=== PATIENT | female | born 1975 | race African-American/Black ===

== ENCOUNTER 2022-04-18 04:08 | Day surgery (SDC) | payer OTHER ==
[2022-04-17 13:31] VITALS: BMI 30.4
[2022-04-18] MEDS ORDERED: ONDANSETRON 4 MG/2 ML VIAL ONE ×2 (09:17→12:27)
[2022-04-18] MEDS ORDERED: DEXAMETHASONE SOD PHOSPHATE 4 MG/1 ML VIAL ONE (09:17)
[2022-04-18] MEDS ORDERED: MIDAZOLAM HCL 2 MG/2 ML SINGLE DOSE VIAL ONE (09:17)
[2022-04-18] MEDS ORDERED: LIDOCAINE HCL/PF 2% SDV 5ML VIAL ONE (09:17)
[2022-04-18] MEDS ORDERED: PROPOFOL 20 ML ONE (09:17)
[2022-04-18] MEDS ORDERED: DESFLURANE GAS 240 ML BOTTLE IH ONE (09:51)
[2022-04-18] MEDS ORDERED: ceFAZolin SODIUM 1 GM VIAL ONE (10:34)
[2022-04-18] MEDS ORDERED: ceFAZolin SODIUM 1 GM VIAL IVPB ONE (10:35)
[2022-04-18] MEDS ORDERED: KETOROLAC TROMETHAMINE 30 MG/1 ML VIAL ONE (10:47)
[2022-04-18] MEDS ORDERED: ACETAMINOPHEN 325 MG TABLET (FP) PO PRN (11:04)
[2022-04-18] MEDS ORDERED: IBUPROFEN 400 MG TABLET (FP) PO PRN (11:04)
[2022-04-18] MEDS ORDERED: ONDANSETRON 4 MG/2 ML VIAL IVPUSH PRN (11:25)
[2022-04-18] MEDS ORDERED: oxyCODONE HCL 5 MG TABLET PO PRN (11:25)
[2022-04-18] MEDS ORDERED: LACTATED RINGERS SOLUTION 1,000 ML IV SCH (11:30)
[2022-04-18 12:43] VITALS: PULSE 80; RESP 18
[2022-04-18 15:58] VITALS: BP 149/80; TEMP 98
== END 2022-04-18 15:00 | disposition home or self-care (01) ==
LOC: JASU-SURG 04:08
PROVIDERS: ATTEND Specialist
PROC: 0UB98ZX Excision of Uterus, Via Natural or Artificial Opening Endoscopic, Diagnostic (ICD-10-PCS; principal; 2022-04-18 10:00)
PROC: 0UDB7ZX Extraction of Endometrium, Via Natural or Artificial Opening, Diagnostic (ICD-10-PCS; 2022-04-18 10:00)
DX: N84.0 Polyp of corpus uteri (principal); D25.0 Submucous leiomyoma of uterus; E11.9 Type 2 diabetes mellitus without complications; I10 Essential (primary) hypertension
CPT/HCPCS: 81025; 82962; 88305-TC; 94760

== ENCOUNTER → 2023-10-03 | Day surgery (SDC) | payer OTHER | END | disposition home or self-care (01) | LOC: FMAMMOTONE 10:10 | PROVIDERS: ATTEND Family Medicine | PROC: 0HBU3ZX Excision of Left Breast, Percutaneous Approach, Diagnostic (ICD-10-PCS; principal; 2023-10-03) | DX: N60.31 Fibrosclerosis of right breast (principal); N64.89 Other specified disorders of breast; R92.0 Mammographic microcalcification found on diagnostic imaging of breast | CPT/HCPCS: 19081; 76098-TC-FY; 87899; 88305-TC; A4648 ==

== ENCOUNTER 2023-12-04 04:13 | Day surgery (SDC) | payer OTHER ==
[2023-11-28 10:44] VITALS: BMI 31.7
[2023-12-04] MEDS ORDERED: PROPOFOL 20 ML ONE ×2 (09:33→09:48)
[2023-12-04] MEDS ORDERED: MIDAZOLAM HCL 2 MG/2 ML SINGLE DOSE VIAL ONE (09:34)
[2023-12-04] MEDS ORDERED: PROMETHAZINE HCL 25 MG/1 ML VIAL IVPB PRN (10:18)
[2023-12-04] MEDS ORDERED: ONDANSETRON 4 MG/2 ML VIAL IVPUSH PRN (10:18)
[2023-12-04] MEDS ORDERED: oxyCODONE HCL 5 MG TABLET PO PRN (10:18)
[2023-12-04] MEDS ORDERED: LACTATED RINGERS SOLUTION 1,000 ML IV SCH (10:30)
[2023-12-04 10:55] VITALS: RESP 16
[2023-12-04] MEDS ORDERED: ACETAMINOPHEN 325 MG TABLET (FP) ONE (12:21)
[2023-12-04] MEDS: ACETAMINOPHEN 325 MG TABLET (FP) PO ONE (12:22)
[2023-12-04 13:09] VITALS: BP 156/97; PULSE 69; TEMP 97.5
== END 2023-12-04 13:10 | disposition home or self-care (01) ==
LOC: JASU-SURG 04:13
PROVIDERS: ATTEND Specialist
PROC: 0UB98ZZ Excision of Uterus, Via Natural or Artificial Opening Endoscopic (ICD-10-PCS; principal; 2023-12-04 10:00)
DX: N84.0 Polyp of corpus uteri (principal); D25.9 Leiomyoma of uterus, unspecified
CPT/HCPCS: 81025; 82962; 88305-TC; 94760